=== PATIENT | male | born 1985 | race Caucasian/White ===

== ENCOUNTER 2019-08-06 23:17 | Emergency (ER) | payer MEDICAID, OTHER ==
[~2019-08-06] VITALS: Ht 190.5 cm; Wt 72.7 kg
[2019-08-06] MEDS ORDERED: ketorolac trometh inj. 60 MG/2 ML VIAL IM ONE (23:35)
[2019-08-06] MEDS ORDERED: HYDROcodone/acetaminophen 5mg/325mg tablet PO ONE (23:35)
[2019-08-06] MEDS ORDERED: orphenadrine citrate 60mg/2ml inj. IM ONE (23:35)
[2019-08-06] MEDS ORDERED: CYCL-1 PO (23:40)
[2019-08-06] MEDS ORDERED: NAPR-56 PO (23:40)
[2019-08-06 23:50] VITALS: BP 110/74
--- NOTE | 2019-08-07 00:24 | NUR ---
[facility] CALL[facility] TO SEE IF OK TO SEND PT THERE PT REPROTS HE WAS PLANNING ON STAYING THERE TODAY AND HAS ALREADY". PT GIVEN NORFLEX, TORADOL AND NORCO 15 MIN AGO.
== END 2019-08-07 00:38 | disposition home or self-care (01) ==
LOC: ER 23:18
DX: M54.5 Low back pain (principal); G89.29 Other chronic pain; F41.9 Anxiety disorder, unspecified; F32.9 Major depressive disorder, single episode, unspecified; F17.200 Nicotine dependence, unspecified, uncomplicated; F12.90 Cannabis use, unspecified, uncomplicated; Z79.899 Other long term (current) drug therapy; Z56.0 Unemployment, unspecified; Z59.0 Homelessness
CPT/HCPCS: 96372; 99283; J1885; J2360

== ENCOUNTER 2019-08-09 17:07 | Emergency (ER) | payer MEDICAID, OTHER ==
[~2019-08-09] VITALS: Ht 190.5 cm; Wt 72.7 kg
[~2019-08-09 17:07] MED LIST: CYCL-1 PO; NAPR-56 PO
[2019-08-09] MEDS ORDERED: LORazepam 1 MG tablet PO ONE (17:20)
[2019-08-09 17:30] LABS: CLARITY,URINE CLEAR (Clear); COLOR,URINE YELLOW (Yellow); GLUCOSE, URINE NEGATIVE (Neg); KETONES,URINE NEGATIVE (Neg); LEUKOCYTE ESTERASE ,URINE NEGATIVE (Neg); NITRITES, URINE NEGATIVE (Neg); OCCULT BLOOD,URINE NEGATIVE (Neg); PROTEIN,URINE NEGATIVE (Neg)
[2019-08-09 17:35] LABS: UA COLLECTION TYPE VOIDED
[2019-08-09 17:46] LABS: URINE AMPHETAMINE SCREEN NEGATIVE (Neg); URINE BARBITUATE SCREEN NEGATIVE (Neg); URINE BENZODIAZEPINES SCREEN NEGATIVE (Neg); URINE CANNABINOID SCREEN POSITIVE (Neg); URINE COCAINE SCREEN NEGATIVE (Neg); URINE METHADONE SCREEN NEGATIVE (Neg); URINE OPIATE SCREEN NEGATIVE (Neg); URINE PHENCYCLIDINE SCREEN NEGATIVE (Neg)
[2019-08-09 18:42] LABS: BASOPHILS # (AUTO) 0.1 X10'3 (0-0.2); BASOPHILS % (AUTO) 0.7 % (0-1); EOSINOPHILS # (AUTO) 0.1 X10'3 (0-0.9); EOSINOPHILS % (AUTO) 0.8 % (0-6); HEMATOCRIT 41.3 % (42.0-52.0); HEMOGLOBIN 13.9 g/dl (14.0-17.9); LYMPHOCYTES % (AUTO) 38.8 % (21-51); MEAN CORPUSCULAR HEMOGLOBIN 30.2 PG (27.0-31.0); MEAN CORPUSCULAR HGB CONC 33.8 g/dL (33.0-36.5); MEAN CORPUSCULAR VOLUME 89.4 FL (78-98); MONOCYTES # (AUTO) 0.6 X10'3 (0-0.9); MONOCYTES % (AUTO) 8.1 % (2-12); NEUTROPHILS % (AUTO) 51.6 % (42-75); PLATELET COUNT 183 X10'3 (140-440); RED BLOOD COUNT 4.62 X10'6 (4.70-6.10); WHITE BLOOD COUNT 7.8 X10'3 (4.5-11.0)
[2019-08-09 19:04] LABS: ALANINE AMINOTRANSFERASE 128 U/L (12-78); ALBUMIN 3.5 G/DL (3.4-5.0); ALBUMIN/GLOBULIN RATIO 1.1 (1.1-1.5); ALKALINE PHOSPHATASE 100 IU/L (46-116); ANION GAP 7 (8-16); ASPARTATE AMINO TRANSFERASE 74 U/L (10-37); BILIRUBIN,TOTAL 0.5 MG/DL (0.1-1.0); BLOOD UREA NITROGEN 27 MG/DL (7-18); BUN/CREATININE RATIO 32.1 (5.4-32.0); CALCIUM 8.6 MG/DL (8.5-10.1); CHLORIDE 106 MMOL/L (99-107); CREATININE 0.84 MG/DL (0.60-1.10); GLUCOSE 115 MG/DL (70-104); POTASSIUM 3.7 MMOL/L (3.5-5.1); SODIUM 143 MMOL/L (135-145); TOTAL CARBON DIOXIDE 29.7 MMOL/L (24-32); TOTAL PROTEIN 6.7 G/DL (6.4-8.2); eGFR > 90 ML/MIN
[2019-08-09 19:07] LABS: ETHANOL < 0.010 GM/DL (0.0-0.010)
--- NOTE | 2019-08-09 20:30 | NUR ---
Went in an assessed pt, pt was eaily arousable but was very fatigued and would fall back to sleep, pt answered yes/no to questions asked regarding mental status. pt said yes he still feels suicidal and that he would use a gun to kill himself.
--- NOTE | 2019-08-09 22:45 | NUR ---
pt up ad judy to restroom
[2019-08-10] MEDS ORDERED: CYCL-1 PO ×2 (01:24→01:34)
[2019-08-10] MEDS ORDERED: NAPR-56 PO ×2 (01:24→01:34)
--- NOTE | 2019-08-10 05:44 | NUR ---
pt is resting on RA in no apparent distress
--- NOTE | 2019-08-10 06:31 | NUR ---
Client is sleeping peacefully on right side with no signs of Distress. Respirations are even and unlabored.
--- NOTE | 2019-08-10 08:11 | NUR ---
Client ate all breakfast
[2019-08-10] MEDS: naproxen 500mg tablet PO SCH ×2 (08:23→20:37)
[2019-08-10] MEDS: cyclobenzaprine 10mg tablet PO PRN ×2 (08:23→20:38)
--- NOTE | 2019-08-10 09:29 | NUR ---
Pt asleep on left side in no apparent distress. Respirations are even and unlabored.
--- NOTE | 2019-08-10 11:49 | NUR ---
PT RESTING EYES CLOSED, RR EQUAL AND UNLABORED.
--- NOTE | 2019-08-10 13:10 | NUR ---
Patient cleaning up in bathroom
--- NOTE | 2019-08-10 14:56 | NUR ---
Pt asleep on right side in no apparent distress. Respirations are even and unlabored.
--- NOTE | 2019-08-10 16:26 | NUR ---
[facility] at bedside, Ettie
--- NOTE | 2019-08-10 17:50 | NUR ---
Pt asleep on right side in no apparent distress. Respirations are even and unlabored.
--- NOTE | 2019-08-10 18:45 | NUR ---
Patient is awake and well oriented. His affect is flat. When asked how he is feeling the patient replies "I've been better. I'm depressed. I've just got to OD on drugs and ." Patient states he is overwhelmed. "I always hear voices that I can't understand." Patient is living on the streets. This patient ate his dinner. No psych meds are currently ordered. This designer/writer will consult with the ER MD. The patient is in direct view from the nursing station. Frequent rounding will be done for patient safety.
[2019-08-10] MEDS ORDERED: LORazepam 1 MG tablet PO PRN (21:00)
[2019-08-10] MEDS ORDERED: OLANZapine 2.5MG tablet PO PRN (21:00)
--- NOTE | 2019-08-10 21:14 | NUR ---
Patient is resting quietly. He has eaten a sandwich. Zyprexa and Ativan have been admistered. The patient is medication compliant and cooperative at this time.
--- NOTE | 2019-08-10 23:04 | NUR ---
Nurse to nurse report to ROD Solis at [facility]. Additional labs will be faxed. Patients social security number does not match his name. [facility] would like SS # V
--- NOTE | 2019-08-10 23:08 | NUR ---
Report on this patient to ROD Solis at [facility]. They would like updated labs, this will be faxed. [facility] would like verification on patients idenity, his SS number comes up to another name. A follow up call will be made to [facility] on this matter.
--- NOTE | 2019-08-10 23:21 | NUR ---
Labs faxed to Irma @ [facility] per request.
[2019-08-11 05:45] VITALS: BP 109/55
--- NOTE | 2019-08-11 07:55 | NUR ---
Patient resting in bed with no signs or symptoms of distress or problems noted.
[2019-08-11] MEDS: naproxen 500mg tablet PO SCH (08:27)
--- NOTE | 2019-08-11 08:37 | NUR ---
Received report on patient who was resting in bed to begin this shift. Alert and oriented x 4 and compliant with assessment and medications this am. No somatic complaints noted.
--- NOTE | 2019-08-11 08:57 | NUR ---
Client awake for meal and assessment. Compliant with care and no S/S of distress noted.
--- NOTE | 2019-08-11 10:59 | NUR ---
No behavioral issues and no somatic complaints. Currently resting with eyes closed in his bed. Respirations are even and unlabored at this time.
--- NOTE | 2019-08-11 13:01 | NUR ---
Resting in bed with eyes closed. Even, unlabored respirations were present. No behavioral issues have been noted as of this writing.
--- NOTE | 2019-08-11 13:05 | NUR ---
Lunch was served to patient at 1300 hours.
[2019-08-11] MEDS ORDERED: OLAN10TA3 PO (13:56)
== END 2019-08-11 14:26 | disposition home or self-care (01) ==
LOC: ER 17:08
DX: R45.851 Suicidal ideations (principal); G89.29 Other chronic pain; F41.9 Anxiety disorder, unspecified; F12.90 Cannabis use, unspecified, uncomplicated; Z59.0 Homelessness; Z56.0 Unemployment, unspecified; Z79.899 Other long term (current) drug therapy
CPT/HCPCS: 36415; 80053; 80305; 80320; 81003; 84443; 85025; 99285

== ENCOUNTER 2019-08-13 16:44 | Emergency (ER) | payer MEDICAID, OTHER ==
[~2019-08-13] VITALS: Ht 190.5 cm; Wt 72.7 kg
[~2019-08-13 16:44] MED LIST changes: +OLAN10TA3 PO
[2019-08-13 17:35] LABS: CLARITY,URINE SLIGHTLY CLOUDY (Clear); GLUCOSE, URINE NEGATIVE (Neg); KETONES,URINE TRACE mg/dl (Neg); LEUKOCYTE ESTERASE ,URINE NEGATIVE (Neg); NITRITES, URINE NEGATIVE (Neg); OCCULT BLOOD,URINE NEGATIVE (Neg); PH,URINE 5.5 (4.8-8.0); PROTEIN,URINE TRACE mg/dl (Neg)
[2019-08-13 17:41] LABS: COLOR,URINE DARK YELLOW (Yellow); UA COLLECTION TYPE CLN CATCH MIDSTREAM
[2019-08-13 17:42] LABS: RBC,URINE NONE SEEN /HPF (0-2); WBC,URINE 0-4 /HPF (0-4)
[2019-08-13 17:43] LABS: BACTERIA,URINE NONE SEEN /HPF (Neg); CAL OXALATE CRYSTALS 4+ /HPF (NEGATIVE); MUCUS STRANDS MANY /LPF (Neg); SQUAMOUS EPITHELIAL CELL,UR FEW /LPF (FEW); URINE AMPHETAMINE SCREEN NEGATIVE (Neg); URINE BARBITUATE SCREEN NEGATIVE (Neg); URINE BENZODIAZEPINES SCREEN NEGATIVE (Neg); URINE CANNABINOID SCREEN POSITIVE (Neg); URINE COCAINE SCREEN NEGATIVE (Neg); URINE METHADONE SCREEN NEGATIVE (Neg); URINE OPIATE SCREEN NEGATIVE (Neg); URINE PHENCYCLIDINE SCREEN NEGATIVE (Neg)
[2019-08-13] MEDS ORDERED: KEP500T PO (18:00)
[2019-08-13] MEDS ORDERED: LEVETIRACETAM 500 MG PO SCH (18:35)
[2019-08-13 18:54] LABS: BASOPHILS # (AUTO) 0.1 X10'3 (0-0.2); BASOPHILS % (AUTO) 0.7 % (0-1); EOSINOPHILS # (AUTO) 0.1 X10'3 (0-0.9); EOSINOPHILS % (AUTO) 0.7 % (0-6); HEMATOCRIT 42.7 % (42.0-52.0); HEMOGLOBIN 14.4 g/dl (14.0-17.9); LYMPHOCYTES # (AUTO) 3.1 X10'3 (1.1-4.8); LYMPHOCYTES % (AUTO) 29.9 % (21-51); MEAN CORPUSCULAR HEMOGLOBIN 29.9 PG (27.0-31.0); MEAN CORPUSCULAR HGB CONC 33.7 g/dL (33.0-36.5); MEAN CORPUSCULAR VOLUME 88.9 FL (78-98); MEAN PLATELET VOLUME 9.8 FL (7.4-10.4); MONOCYTES # (AUTO) 0.8 X10'3 (0-0.9); MONOCYTES % (AUTO) 7.7 % (2-12); NEUTROPHILS # (AUTO) 6.4 X10'3 (1.8-7.7); PLATELET COUNT 202 X10'3 (140-440); RED CELL DISTRIBUTION WIDTH 13.7 % (11.5-14.5); WHITE BLOOD COUNT 10.5 X10'3 (4.5-11.0)
[2019-08-13 19:02] LABS: ALANINE AMINOTRANSFERASE 139 U/L (12-78); ALBUMIN 3.8 G/DL (3.4-5.0); ALBUMIN/GLOBULIN RATIO 1.2 (1.1-1.5); ALKALINE PHOSPHATASE 102 IU/L (46-116); ANION GAP 8 (8-16); ASPARTATE AMINO TRANSFERASE 67 U/L (10-37); BILIRUBIN,TOTAL 0.4 MG/DL (0.1-1.0); BLOOD UREA NITROGEN 29 MG/DL (7-18); BUN/CREATININE RATIO 26.9 (5.4-32.0); CALCIUM 9.2 MG/DL (8.5-10.1); CHLORIDE 106 MMOL/L (99-107); CREATININE 1.08 MG/DL (0.60-1.10); ETHANOL < 0.010 GM/DL (0.0-0.010); GLUCOSE 101 MG/DL (70-104); POTASSIUM 4.1 MMOL/L (3.5-5.1); SODIUM 145 MMOL/L (135-145); TOTAL CARBON DIOXIDE 31.5 MMOL/L (24-32); TOTAL PROTEIN 6.9 G/DL (6.4-8.2); eGFR 80 ML/MIN
[2019-08-13] MEDS: levetiracetam 250mg tablet PO SCH ×2 (19:08→20:30)
[2019-08-13] MEDS ORDERED: levetiracetam 250mg tablet PO SCH (19:08)
--- NOTE | 2019-08-13 20:35 | NUR ---
Shook pt's bed multiple times in an attempt to wake pt up for med administration. Pt moaned and shook his head. Non-admin pt uncooperative.
--- NOTE | 2019-08-14 02:00 | NUR ---
Pt in bed with eyes closed with restful movements since 1999 last night.
--- NOTE | 2019-08-14 02:14 | NUR ---
Pt sitting up in bed shouting out that he needs something for sleep. Pt stating he "hasn't slept all night". Reminded pt he would not awake for med administration. Pt then made whine-like noises, stomped feet in bed, and fanned covers about.
--- NOTE | 2019-08-14 06:20 | NUR ---
Patient sleeping supine. No restlessness observed. Patient is in line of site of staff at all times.
[2019-08-14] MEDS: levetiracetam 250mg tablet PO SCH (08:12)
--- NOTE | 2019-08-14 08:25 | NUR ---
Patient awake and alert and asking for coffee. No distress observed. Patient denies suicidal ideation at this time. Patient states "I'm not as crazy as I thought". Patient is ready to go back on the streets. Patient states he has a ride at noon who is going to take patient to [place] and wants to leave. RN explained he would have to wait for [facility] to see him. They would decide whether he is able to leave or not. Patient verbalized understanding. Continue to monitor.
--- NOTE | 2019-08-14 09:30 | NUR ---
Patient was seen by [facility] and will be released. Patient is getting dressed and cleaning up in the Bathroom. Continue to monitor.
[2019-08-14 11:17] VITALS: BP 116/69
== END 2019-08-14 10:05 | disposition home or self-care (01) ==
LOC: ER 16:45
DX: F32.9 Major depressive disorder, single episode, unspecified (principal); F41.9 Anxiety disorder, unspecified; G89.29 Other chronic pain; M54.9 Dorsalgia, unspecified; F12.90 Cannabis use, unspecified, uncomplicated; Z59.0 Homelessness; Z56.0 Unemployment, unspecified
CPT/HCPCS: 36415; 80053; 80305; 80320; 81001; 85025; 99284

== ENCOUNTER 2019-09-06 14:40 | Inpatient (IN) | payer MEDICAID ==
[~2019-09-06] VITALS: Ht 188 cm; Wt 83.2 kg
[~2019-09-06 14:40] MED LIST changes: -CYCL-1 PO; +KEP500T PO; -NAPR-56 PO; -OLAN10TA3 PO
--- NOTE | 2019-09-06 16:45 | NUR ---
Admission note: Client arrived via [facility] from [facility]. Client was met in the front of hospital by 2 staff members and was escorted to unit by those 2 staff members as well as a member of Security. Client was amicable to the admission and was cooperative with the process.Original 5150 accompanied client and it was delivered to Jovany(JIMENA) by this medical underwriter.Involuntary advisement rendered. Safety search and inventory was conducted by Blair([facility]). Client was escorted to shower where a skin check was performed by 2 staff psychologist members. Client has a scar on left hip from I and D of 5 years ago. MRSA swab was collected and sent to the Lab for processing.Vital signs upon admit were' Dr=259/77, P=102,R=16 and T was 98.2. His o2 sats were 97% on RA. Client is alert and oriented x 4 and understands the reasons for this hospitalization.. All assessments (admission) were conducted by Santiago HOGAN. This client is 80 inches tall and his admission weight was 183 lbs. No current somatic complaints. Client was oriented to the unit and staff and has been oriented to unit rules. Client did verbally contract for safe unit behaviors.
[2019-09-06] MEDS ORDERED: magnesium hydroxide 30ml (MOM) UD suspension PO PRN (16:55)
[2019-09-06] MEDS ORDERED: mag hydrox/Alum hydrox/simeth 30ml oral suspension PO PRN (16:55)
[2019-09-06] MEDS ORDERED: tuberculin, purif. prot. deriv. 5 units/0.1ml ID ONE (16:55)
[2019-09-06] MEDS ORDERED: loperamide 2mg capsule PO PRN (16:55)
[2019-09-06] MEDS ORDERED: OLAN10TA3 PO (17:20)
[2019-09-06] MEDS: NICOTINE POLACRILEX 2 MG LOZENGE BC PRN (18:32)
[2019-09-06 19:00] VITALS: BP 130/87
[2019-09-06] MEDS: acetaminophen 325mg tablet PO PRN (19:11)
[2019-09-06] MEDS: hydrOXYzine 25 MG tablet PO PRN (19:11)
--- NOTE | 2019-09-07 01:40 | NUR ---
Nursing Progress Note: Legal hold: 5150 Client on voluntary/involuntary status for DTS. Report received from EDISON Henderson with use of SBAR. Why are they here:Admission note: Client arrived via [facility] from [facility]. Client was met in the front of hospital by 2 staff members and was escorted to unit by those 2 staff members as well as a member of Security. Client was amicable to the admission and was cooperative with the process.Original 5150 accompanied client and it was delivered to Bushra) by this information writer.Involuntary advisement rendered. Safety search and inventory was conducted by Blair([facility]). Client was escorted to shower where a skin check was performed by 2 medical staff coordinator members. Client has a scar on left hip from I and D of 5 years ago. MRSA swab was collected and sent to the Lab for processing.Vital signs upon admit were' Lo=070/77, P=102,R=16 and T was 98.2. His o2 sats were 97% on RA. Client is alert and oriented x 4 and understands the reasons for this hospitalization.. All assessments (admission) were conducted by Santiago HOGAN. This client is 80 inches tall and his admission weight was 183 lbs. No current somatic complaints. Client was oriented to the unit and staff and has been oriented to unit rules. Client did verbally contract for safe unit behaviors. Assessment What has happened this shift: Patient is awake and well oriented. He is ambulatory around the unit, he watches television. Post shift change patient complained of increasing anxiety, he also requested nicotine lozenges. Patient has a complaint of low back pain, he does not present with any sign of pain, his complaint is subjective. Patient denies S/I or H/I. Patient states "not having suicidal ideation could change, you never know." He complains of depression. Patient states the depression is present as "I can't do anything for myself anymore." Patient states "I''m Bipolar, Schizophrenic, and I have a split personality." This patient is medication compliant. He did request Ativan but had fallen asleep prior to being administered. The patient was advised by this information writer that he is in a safe place. Q15 minute rounding is being done for patient safety. S/I, H/I:Patient denies at this time. See above note. A/VH: Denies. Sleep:Sleeping well, will tally hours in am. ADL's:Independant. Group attendance: No group on night filler. Were meds taken:Patient is medication compliant. Any med S/E: None. Mental Status Exam Appearance:Clean, dressed well. Eye contact:Direct. Behavior:Calm and cooperative with staff and other patients. Speech:Normal tone, rate, and rhythm. Mood:Minor depression and anxiety. Affect:Flat. Thought process:Patient states he doesn't know what to do with his life. Thought Content:Anxiety about living conditions. Cognition:Alert and oriented to person, place, time, and situation. Insight:Poor. Judgment:Poor PRN's used:Nicotine, Atarax. Therapeutic interventions 1:1 assessment, active listening, therapeutic conversation, encouragement of autonomy, positive reinforcement, medication administration/education/monitoring, Q 15 min safety checks. Restraints/seclusion/emergency medication: N/A Justification of Continued Inpatient Treatment: Continued therapeutic support and medication management needed to provide stabilization, prevent decompensation, decreasing risk to patient and readmittance.
[2019-09-07] MEDS: LORazepam 1 MG tablet PO PRN ×2 (03:40→10:35)
--- NOTE | 2019-09-07 03:43 | NUR ---
Patient awoke, complains of anxiety and inability to sleep. PO Ativan given. Patient returned to bed.
[2019-09-07 07:27] VITALS: BP 122/81
[2019-09-07] MEDS: hydrOXYzine 25 MG tablet PO PRN (07:58)
[2019-09-07] MEDS: nicotine 21mg patch - 24 hr TD SCH (07:59)
[2019-09-07] MEDS ORDERED: levetiracetam 250mg tablet PO SCH ×2 (10:33→20:00)
[2019-09-07] MEDS ORDERED: olanzapine 10mg tablet PO SCH ×3 (10:34→20:00)
[2019-09-07] MEDS ORDERED: levetiracetam 250mg tablet PO ONE (11:15)
[2019-09-07] MEDS ORDERED: olanzapine 10mg tablet PO ONE ×2 (11:15)
[2019-09-07] MEDS: levetiracetam 250mg tablet PO SCH ×2 (11:16→20:48)
--- NOTE | 2019-09-07 16:53 | NUR ---
Nursing Progress Note: Santiago "Gómez" Legal hold: 5150 Client on voluntary/involuntary status for DTS. Report received from EDISON Contreras with use of SBAR. Why are they here:Admission note: Client arrived via [facility] from [facility]. Client was met in the front of hospital by 2 staff members and was escorted to unit by those 2 staff members as well as a member of Security. Client was amicable to the admission and was cooperative with the process.Original 5150 accompanied client and it was delivered to Jovany BAUTISTA) by this screen writer.Involuntary advisement rendered. Safety search and inventory was conducted by Blair(T). Client was escorted to shower where a skin check was performed by 2 waitstaff members. Client has a scar on left hip from I and D of 5 years ago. MRSA swab was collected and sent to the Lab for processing.Vital signs upon admit were' Wi=936/77, P=102,R=16 and T was 98.2. His o2 sats were 97% on RA. Client is alert and oriented x 4 and understands the reasons for this hospitalization.. All assessments (admission) were conducted by Santiago HOGAN. This client is 80 inches tall and his admission weight was 183 lbs. No current somatic complaints. Client was oriented to the unit and staff and has been oriented to unit rules. Client did verbally contract for safe unit behaviors. Assessment What has happened this shift: Patient is awake and well oriented. He is ambulatory around the unit, he watches television. Post shift change patient complained of increasing anxiety, he also requested nicotine lozenges. and was administered a nictotine patch, and atarax for his agitation.He seems almost euphoric, laughing and attempting to be comical (sharing flatulence). Became very agitated during snack, has complained that the meal portions on not acceptable, he is always hungry and wanted a [employer] which wasn't available. He directed himself to his room to calm down. Reviewed medication orders and provided with Ativan. Orders faxed again to pharmacy. Became agitated when lunch tray was served with regular (versus double) portion. While complaining stated he needed to "throw up" and did so in the morales bathroom. shared that he is very depressed as he just wants to get back to [place] where his friends are. He left there approximately 5 years ago and has been unable to travel back.Requested an early snack due to vomiting his lunch, immediately after consuming, he again vomited. encouraged patient to rest and await evaluation by provider. Becomes very agitated when told to wait for food, or if he doesn't get what he wants S/I, H/I: Denies A/VH: Denies. Sleep: 9.25 ADL's: Independent. Group attendance: Yes morning, refused art therapy Were meds taken: Patient is medication compliant. Any med S/E: None. Mental Status Exam Appearance:Clean, dressed well. Eye contact:Direct. Behavior:euphoric, laughing, anxious at times Speech:Normal tone, rate, and rhythm. Mood: labile Affect: Congruent with mood Thought process:Linear. Thought Content:wanting to be admitted to rehab facility Cognition:Alert and oriented to person, place, time, and situation. Insight:Poor. Judgment:Poor PRN's used:Nicotine, Atarax, Ativan Therapeutic interventions 1:1 assessment, active listening, therapeutic conversation, encouragement of autonomy, positive reinforcement, medication administration/education/monitoring, Q 15 min safety checks. Restraints/seclusion/emergency medication: N/A Justification of Continued Inpatient Treatment: Continued therapeutic support and medication management needed to provide stabilization, prevent decompensation, decreasing risk to patient and readmittance.
[2019-09-07 19:48] VITALS: BP 117/60
[2019-09-07] MEDS: quetiapine 100mg tablet PO SCH (20:49)
--- NOTE | 2019-09-07 23:26 | NUR ---
Nursing Progress Note: Santiago "Gómez" Legal hold: 5150 Client on voluntary/involuntary status for DTS. Report received from EDISON Manzo with use of SBAR. Why are they here:Admission note: Client arrived via [facility] from [facility]. Client was met in the front of hospital by 2 staff members and was escorted to unit by those 2 staff members as well as a member of Security. Client was amicable to the admission and was cooperative with the process.Original 5150 accompanied client and it was delivered to Jovany (JIMENA) by this technical proposal writer.Involuntary advisement rendered. Safety search and inventory was conducted by Blair(T). Client was escorted to shower where a skin check was performed by 2 nursing staffing coordinator members. Client has a scar on left hip from I and D of 5 years ago. MRSA swab was collected and sent to the Lab for processing.Vital signs upon admit were' Kc=975/77, P=102,R=16 and T was 98.2. His o2 sats were 97% on RA. Client is alert and oriented x 4 and understands the reasons for this hospitalization.. All assessments (admission) were conducted by Santiago HOGAN. This client is 80 inches tall and his admission weight was 183 lbs. No current somatic complaints. Client was oriented to the unit and staff and has been oriented to unit rules. Client did verbally contract for safe unit behaviors. Assessment What has happened this shift: Patient in bed sleeping at the change of shift. He sleeps the majority of the evening. he is cooperative for a 1:1 assessment at his bedside. No signs of being labile this evening. But is demanding wanting food and medications immediately when asked. Patient is instructed that these things will be provided for him but he has to be patient and allow time for staff to obtain them. Patient is given a PB&J and chips for evening snack this evening he eats it with out any difficult this shift and no complaints of nausea. Patient does report indigestion which Maalox is provided for him with good effect. Patient is complaint with evening medications and goes back to bed shortly after HS medication pass. S/I, H/I: Denies A/VH: Denies. Sleep: Currently sleeping, see sleep assessment ADL's: Independent Group attendance: No groups this shift. Were meds taken: Patient is medication compliant. Any med S/E: None. Mental Status Exam Appearance: Hair unkempt, wearing clean street clothing Eye contact: Direct. Behavior:Isolative, keeps to self Speech: Normal tone, rate, and rhythm. Mood: Calm, euthymic Affect: Congruent with mood Thought process: Linear. Thought Content: Focused on medication and food this evening Cognition: A& Ox3 Insight: Poor. Judgment: Poor PRN's used: Maalox Therapeutic interventions 1:1 assessment, active listening, therapeutic conversation, encouragement of autonomy, positive reinforcement, medication administration/education/monitoring, Q 15 min safety checks. Restraints/seclusion/emergency medication: N/A Justification of Continued Inpatient Treatment: Continued therapeutic support and medication management needed to provide stabilization, prevent decompensation, decreasing risk to patient and readmittance.
[2019-09-08 07:48] VITALS: BP 106/67
[2019-09-08 07:57] LABS: CHOL/HDL RATIO 2.9 (0.00-4.99); CHOLESTEROL 193 MG/DL (0-200); HDL CHOLESTEROL 66 MG/DL (35-60); LDL CHOLESTEROL 113 MG/DL (50-100); TRIGLYCERIDES 109 MG/DL (20-135)
[2019-09-08] MEDS: nicotine 21mg patch - 24 hr TD SCH (08:03)
[2019-09-08] MEDS: levetiracetam 250mg tablet PO SCH ×2 (08:04→20:23)
[2019-09-08] MEDS: quetiapine 100mg tablet PO SCH ×4 (08:04→20:23)
[2019-09-08] MEDS: NICOTINE POLACRILEX 2 MG LOZENGE BC PRN (08:20)
--- NOTE | 2019-09-08 15:33 | NUR ---
Nursing Progress Note: Santiago "Gómez" Legal hold: 5150 Client on involuntary status for DTS. Report received from EDISON Contreras with use of SBAR. Why are they here:Admission note: Client arrived via [facility] from [facility]. Client was met in the front of hospital by 2 staff members and was escorted to unit by those 2 staff members as well as a member of Security. Client was amicable to the admission and was cooperative with the process.Original 5150 accompanied client and it was delivered to Jovany BAUTISTA) by this scientific writer.Involuntary advisement rendered. Safety search and inventory was conducted by Blair(T). Client was escorted to shower where a skin check was performed by 2 staff nurse members. Client has a scar on left hip from I and D of 5 years ago. MRSA swab was collected and sent to the Lab for processing.Vital signs upon admit were' Uk=181/77, P=102,R=16 and T was 98.2. His o2 sats were 97% on RA. Client is alert and oriented x 4 and understands the reasons for this hospitalization.. All assessments (admission) were conducted by Santiago HOGAN. This client is 80 inches tall and his admission weight was 183 lbs. No current somatic complaints. Client was oriented to the unit and staff and has been oriented to unit rules. Client did verbally contract for safe unit behaviors. Assessment What has happened this shift: Pt up and visible on the unit. Pt entitled and has been focused on food. At breakfast and snack, he is trying to get more than his share of food. Pt was upset, but has been able to express that appropriately. Pt did state that he wants to leave today and he denies S.I. And stated he hasnt been suicidal since he was admitted. He said, to tell you the truth, I actually come in to these places so I can get [employer] bus tickets to other states. Pt less edgy after lunch. Pt took a nap and then met with the PA and is happy to be leaving tomorrow. S/I, H/I: Denies A/VH: Denies. Sleep: nap x 2 ADL's: Independent. Group attendance: refused Were meds taken: Patient is medication compliant. Any med S/E: None. Mental Status Exam Appearance:Clean, dressed well. Eye contact:Direct. Behavior:euphoric, laughing, anxious at times Speech:Normal tone, rate, and rhythm. Mood: labile Affect: Congruent with mood Thought process:Linear. Thought Content:wanting to be admitted to rehab facility Cognition:Alert and oriented to person, place, time, and situation. Insight:Poor. Judgment:Poor PRN's used:Nicotine Therapeutic interventions 1:1 assessment, active listening, therapeutic conversation, encouragement of autonomy, positive reinforcement, medication administration/education/monitoring, Q 15 min safety checks. Restraints/seclusion/emergency medication: N/A Justification of Continued Inpatient Treatment: Continued therapeutic support and medication management needed to provide stabilization, prevent decompensation, decreasing risk to patient and readmittance.
[2019-09-08] MEDS: acetaminophen 325mg tablet PO PRN ×2 (18:48→19:51)
[2019-09-08 19:28] VITALS: BP 114/76
--- NOTE | 2019-09-09 00:12 | NUR ---
Nursing Progress Note: Santiago Camara" Legal hold: 5150 Client on involuntary status for DTS. Report received from EDISON Contreras with use of SBAR. Why are they here: 5150, Pt was evaluated at [facility] because he was making suicidal statements and reporting he was confused. Pt is making suicidal statements which he attributes to feeling "confused" and feeling like he's "loosing control" Pt recently attempted suicide by hanging himself. Pt was seen twice at [facility] ER and was released. Pt reported that he had been given med when he was hospitalized in [facility]. Pt lost the meds. Assessment What has happened this shift: Pt in bed at start of shift. He immediately asked when he would get medications. Plan made with pt agreement to wake him up (If sleeping) for snack then give him his HS meds. Pt stated he was unable to get up because he had a seizure earlier, shortly after saying that he got up without any difficulty. Pt is aware he is being discharged tomorrow back to [place]. Pt said he is very tired went to sleep. Awakened easily for snack and meds then went back to sleep Sleeping at this time. S/I, H/I: Denies A/VH: Denies. Sleep: Asleep most of shit. ADL's: Independent. Group attendance: refused Were meds taken: Patient is medication compliant. Any med S/E: None. Mental Status Exam Appearance: Clean, dressed well. Eye contact:Direct. Behavior: Irritable at start of shift became more pleasant and cooperative. Speech:Normal tone, rate, and rhythm. Mood: labile Affect: Congruent with mood Thought process:Linear. Thought Content: DC to [place] Cognition:Alert and oriented to person, place, time, and situation. Insight:Poor. Judgment:Poor PRN's used: Tylenol Therapeutic interventions 1:1 assessment, active listening, therapeutic conversation, encouragement of autonomy, Positive reinforcement, medication administration/education/monitoring, Q 15 min safety checks. Restraints/seclusion/emergency medication: N/A Justification of Continued Inpatient Treatment: Continued therapeutic support and medication management needed to provide stabilization, prevent decompensation, decreasing risk to patient and readmittance.
[2019-09-09] MEDS: quetiapine 100mg tablet PO SCH (07:29)
[2019-09-09] MEDS: levetiracetam 250mg tablet PO SCH (07:30)
[2019-09-09] MEDS: acetaminophen 325mg tablet PO PRN (07:30)
[2019-09-09] MEDS: nicotine 21mg patch - 24 hr TD SCH (07:31)
[2019-09-09 07:33] VITALS: BP 106/70
[2019-09-09] MEDS: NICOTINE POLACRILEX 2 MG LOZENGE BC PRN ×2 (07:38→09:34)
[2019-09-09] MEDS ORDERED: KEP500T PO (11:32)
[2019-09-09] MEDS ORDERED: QUET100T33 PO ×2 (11:32)
[2019-09-09] MEDS ORDERED: NICO-668 BC (11:32)
[2019-09-09] MEDS ORDERED: NICO-687 TD (11:32)
--- NOTE | 2019-09-09 12:24 | NUR ---
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 Discharge instructions including medications reviewed with pt and he verbalized understanding and he signed and he was given a copy. Pt medications called into [facility]. All belongings returned to the patient and he verbalized and signed that he received all his stuff. Pt sent with smoking cessation information.
== END 2019-09-09 12:20 | disposition short-term general hospital (02) | DRG 751 ==
LOC: ADULT MH 14:40
PROVIDERS: ADMIT Psychiatry & Neurology Psychiatry; ATTEND Psychiatry & Neurology Psychiatry
DX: F32.3 Major depressive disorder, single episode, severe with psychotic features (principal); G40.909 Epilepsy, unspecified, not intractable, without status epilepticus; F12.90 Cannabis use, unspecified, uncomplicated; F17.210 Nicotine dependence, cigarettes, uncomplicated; R73.09 Other abnormal glucose; F60.9 Personality disorder, unspecified; J44.9 Chronic obstructive pulmonary disease, unspecified; G89.29 Other chronic pain; Z59.0 Homelessness; Z79.899 Other long term (current) drug therapy; Z76.5 Malingerer [conscious simulation]
CPT/HCPCS: 36415; 80061; 83036; 87081; Z7610